=== PATIENT | male | born 1940 | race Caucasian/White ===

== ENCOUNTER 2022-02-06 11:30 | Emergency (ER) | payer MEDICARE ==
--- NOTE | 2022-02-06 13:51 | Emergency Department Report ---
ED General Adult HPI - General Chief complaint: Dizziness Stated complaint: LIGHTHEADED WHILE STANDING PUI?: No Time Seen by Provider: 02/06/22 12:43 Source: patient, EMS Mode of arrival: Stretcher Limitations: No Limitations - History of Present Illness Initial comments: This is a 81-year-old male with medical history of hypertension also bradycardia as well as COPD who was brought in by EMS from clinic after patient felt lig htheaded and also dizzy from blood draw. At the time my evaluation patient denies to be any discomfort. Patient denies any fever chill night sweat dizziness blurred vision lightheadedness headache tinnitus ear pain runny nose sore throat loss of taste loss of smell chest pain palpitation short of breath cough abdominal pain nausea vomiting diarrhea constipation joint pain muscle pain new rash and heat or cold intolerance. ED Review of Systems ROS: Stated complaint: LIGHTHEADED WHILE STANDING Other details as noted in HPI Comment: All other systems reviewed and negative Constitutional: no symptoms reported Eyes: as per HPI ENT: as per HPI Respiratory: no symptoms reported, see HPI Cardiovascular: as per HPI Endocrine: no symptoms reported, see HPI Gastrointestinal: as per HPI Genitourinary: as per HPI Musculoskeletal: as per HPI Skin: as per HPI Neurological: as per HPI Psychiatric: as per HPI Hematological/Lymphatic: as per HPI ED Past Medical Hx - Past Medical History Previous Medical History?: Yes Hx Hypertension: Yes Hx COPD: Yes Additional medical history: Bradycardia - Surgical History Past Surgical History?: No - Social History Smoking Status: Never Smoker Substance Use Type: None ED Physical Exam - General Limitations: No Limitations General appearance: alert, in no apparent distress - Head Head exam: Present: atraumatic, normocephalic, normal inspection - Eye Eye exam: Present: normal appearance, PERRL, EOMI Pupils: Present: normal accommodation - ENT ENT exam: Present: normal exam, mucous membranes moist - Neck Neck exam: Present: normal inspection, full ROM - Respiratory Respiratory exam: Present: normal lung sounds bilaterally - Cardiovascular Cardiovascular Exam: Present: bradycardia (Bradycardia but chronotropic competence. Patient's heart rate increased into the low 60s when I instructed him to bicycle in the air.) - GI/Abdominal GI/Abdominal exam: Present: soft - Extremities Exam Extremities exam: Present: normal inspection, full ROM, normal capillary refill - Back Exam Back exam: Present: normal inspection, full ROM - Neurological Exam Neurological exam: Present: alert, oriented X3, CN II-XII intact - Psychiatric Psychiatric exam: Present: normal affect, normal mood ED Course Vital Signs 02/06/22 02/06/22 11:39 13:13 Temperature 98.1 F 98.7 F Pulse Rate 46 L 64 Respiratory 18 18 Rate Blood Pressure 95/52 Blood Pressure 110/53 [Left] O2 Sat by Pulse 98 98 Oximetry - Reevaluation(s) Reevaluation #1: 02/06/22 15:01 Biochemically and radiographically work-up was negative. Patient felt to make a follow-up appointment with primary commitments to be seen within 3 days. ED Medical Decision Making - Lab Data Result diagrams: 02/06/22 13:27 02/06/22 13:27 Critical care attestation.: If time is entered above; I have spent that time in minutes in the direct care of this critically ill patient, excluding procedure time. ED Disposition Clinical Impression: Vasovagal near-syncope Disposition: 01 HOME / SELF CARE / HOMELESS Is pt being admited?: No Does the pt Need Aspirin: No Condition: Stable Instructions: Near-Syncope, [id number] Additional Instructions: Make a follow-up appointment with your primary care provider to be seen within 3 days for further outpatient evaluation. Time of Disposition: 15:01
[2022-02-06 13:53] LABS: Hematocrit 40.5 % (35.5-45.6); Hemoglobin 13.5 gm/dl (11.8-15.2); Mean Corpuscular HGB Conc 33 % (32-34); Mean Corpuscular Volume 92 fl (84-94); Platelet Count 177 K/mm3 (140-440); Red Blood Count 4.41 M/mm3 (3.65-5.03); Red Cell Distribution Width 14.9 % (13.2-15.2)
[2022-02-06 14:17] LABS: Alanine Aminotransferase 13 units/L (7-56); Albumin 3.4 g/dL (3.9-5); BUN/Creatinine Ratio 14; Blood Urea Nitrogen 15 mg/dL (9-20); Calcium 8.7 mg/dL (8.4-10.2); Hemolysis Index 4
--- NOTE | 2022-02-06 14:23 | XRay Report ---
CHEST 1 VIEW 02/06/2022 1:39 PM INDICATION / CLINICAL INFORMATION: dizzy. COMPARISON: None available. FINDINGS: SUPPORT DEVICES: None. HEART / MEDIASTINUM: Mildly enlarged. LUNGS / PLEURA: No significant pulmonary or pleural abnormality. No pneumothorax. ADDITIONAL FINDINGS: No significant additional findings. IMPRESSION: 1. No acute findings. Signer Name: Dougie Barragna MD Signed: 02/06/2022 2:18 PM Workstation Name: [id number]
--- NOTE | 2022-02-06 14:28 | Cat Scan Report ---
CT HEAD WITHOUT CONTRAST INDICATION / CLINICAL INFORMATION: dizzy. TECHNIQUE: All CT scans at this location are performed using CT dose reduction for ALARA by means of automated exposure control. COMPARISON: None available. FINDINGS: HEMORRHAGE: None. EXTRA-AXIAL SPACES: Mildly prominent likely related to cortical atrophy. VENTRICULAR SYSTEM: Normal in size and morphology for the patient's age. CEREBRAL PARENCHYMA: Mild white matter hypodensities likely representing microangiopathy. No acute te rritorial infarct. MIDLINE SHIFT / HERNIATION: None. 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 ORBITS: Normal as visualized. SOFT TISSUES: No significant abnormality. SKULL: No significant abnormality. PARANASAL SINUSES / MASTOID AIR CELLS: Normal as visualized. ADDITIONAL FINDINGS: None. IMPRESSION: 1. No acute intracranial abnormality. 2. 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 No acute cerebellar or brainstem abnormality. Signer Name: Dougie Barragan MD Signed: 02/06/2022 2:23 PM Workstation Name: [email or web address]
[2022-02-06 15:11] VITALS: BP 133/75
== END 2022-02-06 15:23 | disposition home or self-care (01) ==
LOC: ED 11:30
DX: R55 Syncope and collapse (principal); I10 Essential (primary) hypertension
CPT/HCPCS: 36415; 70450; 71045; 80053; 83735; 83880; 84484; 85027; 99284